=== PATIENT | female | born 1995 | race Caucasian/White ===

== ENCOUNTER 2024-12-14 19:09 | Emergency (ER) | payer MEDICAID, OTHER ==
[~2024-12-14] VITALS: Ht 177.8 cm; Wt 83.9 kg
[2024-12-14] MEDS: IV NS 0.9% 500 ML BAG IV ONE (19:30)
[2024-12-14 19:56] VITALS: TEMP 98.4
[2024-12-14 20:05] LABS: PLATELET COUNT (AUTO) 215 K/uL (150-450); RED BLOOD CELL COUNT(AUTO) 3.67 MIL/uL (4.0-5.2); RED CELL DISTRIBUTION WIDTH 13.3 % (11.5-15.0); WHITE BLOOD COUNT (AUTO) 7.2 K/uL (4.3-11.0)
[2024-12-14 20:13] LABS: CALCIUM, SERUM 8.2 mg/dL (8.5-10.1); CREATININE 0.5 mg/dL (0.6-1.3); SODIUM SERUM 139.0 mmol/L (136-145); UREA NITROGEN, BLOOD 12.0 mg/dL (7-18)
[2024-12-14 21:30] VITALS: BP 122/87; O2SAT 98
== END 2024-12-14 21:31 | disposition home or self-care (01) ==
LOC: ER 19:12
DX: O99.412 Diseases of the circulatory system complicating pregnancy, second trimester (principal); R07.89 Other chest pain; O10.912 Unspecified pre-existing hypertension complicating pregnancy, second trimester; Z3A.18 18 weeks gestation of pregnancy
CPT/HCPCS: 99284; 96360; 76805; 93005; 85025; 80048; 36415; J7040

== ENCOUNTER 2025-01-25 13:53 | Emergency (ER) | payer MEDICAID, OTHER ==
[~2025-01-25] VITALS: Ht 180.3 cm; Wt 96.2 kg
[2025-01-25] MEDS ORDERED: POLY119P PO (14:12)
[2025-01-25] MEDS ORDERED: DOCU-141 PO (14:12)
[2025-01-25] MEDS ORDERED: CALC625T15 PO (14:12)
[2025-01-25] MEDS ORDERED: POLYETHYLENE GLYCOL 3350 17 GM POWD.PACK ONE (14:18)
[2025-01-25] MEDS: POLYETHYLENE GLYCOL 3350 17 GM POWD.PACK PO ONE (14:21)
[2025-01-25 14:31] VITALS: BP 118/80; TEMP 98.1; O2SAT 99
== END 2025-01-25 14:31 | disposition home or self-care (01) ==
LOC: ER 13:55
DX: K59.00 Constipation, unspecified (principal); I10 Essential (primary) hypertension; Z91.048 Other nonmedicinal substance allergy status